=== PATIENT | female | born 1960 ===

== ENCOUNTER 2018-09-18 10:31 | Outpatient (CLI) | payer OTHER | END 2018-09-18 10:32 | disposition home or self-care (01) | LOC: RAD 10:31 | DX: Z12.31 Encounter for screening mammogram for malignant neoplasm of breast (principal) ==

== ENCOUNTER 2018-10-05 09:14 | Outpatient (CLI) | payer OTHER | END 2018-10-05 09:15 | disposition home or self-care (01) | LOC: RAD 09:14 | DX: R92.8 Other abnormal and inconclusive findings on diagnostic imaging of breast (principal) ==

== ENCOUNTER 2018-10-17 08:20 | Outpatient (CLI) | payer OTHER | END 2018-10-17 08:21 | disposition home or self-care (01) | LOC: LAB 08:20 ==